=== PATIENT | female | born 1985 | race Caucasian/White ===

== ENCOUNTER 2019-05-03 01:24 | Emergency (ER) | payer BC, OTHER ==
[~2019-05-03] VITALS: Ht 175.3 cm; Wt 65.8 kg
[2019-05-03 01:47] VITALS: BP 132/83
--- NOTE | 2019-05-03 01:47 | NUR ---
ED Nurse Note: Pt arrived ED from home. c/o right shoulder pain 8/10 since last night without any fall or injury. Pt is A/O X 4, Vital signs stable at this time, waiting for orders.
--- NOTE | 2019-05-03 02:04 | NUR ---
ED Nurse Note: Pain meds given as ordered.
[2019-05-03] MEDS ORDERED: IBUPROFEN600 MG ORAL (02:52)
[2019-05-03 02:57] VITALS: BP 132/83
--- NOTE | 2019-05-03 02:57 | NUR ---
ER DISCHARGE NOTE: Patient is cleared to be discharged per Dr. Tucker. X-ray done. Meds given as ordered. arm sline provided. Pt is aox4 on room air with stable vital signs. Pt was given dc and prescription instructions and was able to verbalize understanding. Pt's ID band removed. Pt is able to ambulate well with steady gait and took all belongings.
--- NOTE | 2019-05-03 06:19 | Emergency Room Report ---
History of Present Illness General Chief Complaint: Pain Source: Patient Present Illness HPI 34-year-old female presents ED for evaluation. Walked in complaining of right shoulder pain. Started last night. States that she felt some pain after a workout but got progressively worse. States now she is crying in pain and could not sleep because of the pain. Pain is a 10 out of 10, throbbing, nonradiating. Worse with abduction. No other aggravating relieving factors. Denies any other associated symptoms Allergies: Coded Allergies: AMOXICILLIN (Verified Allergy, Unknown, 05/03/19) Patient History Past Medical History: other - rheumatoid arthritis Past Surgical History: none Pertinent Family History: none Social History: Denies: smoking, alcohol use, drug use Last Menstrual Period: Apr 17 2019 Now: No Immunizations: UTD Reviewed Nursing Documentation: PMH: Agreed; PSxH: Agreed Nursing Documentation-PMH Hx Neurological Problems: Yes - Rheumatoid Arthritis Review of Systems All Other Systems: negative except mentioned in HPI Physical Exam Vital Signs Date Time Temp Pulse Resp B/P (MAP) Pulse Ox O2 Delivery O2 Flow Rate FiO2 05/03/19 01:41 98.1 70 16 132/83 (99) 95 Room Air Sp02 EP Interpretation: reviewed, normal General Appearance: no apparent distress, alert, GCS 15, non-toxic Head: normocephalic Eyes: bilateral eye normal inspection, bilateral eye PERRL ENT: normal ENT inspection Neck: normal inspection Respiratory: normal inspection Cardiovascular #1: normal inspection Gastrointestinal: normal inspection Rectal: deferred Genitourinary: no CVA tenderness Musculoskeletal: tender - R shoulder Neurologic: alert, oriented x3, responsive, motor strength/tone normal, sensory intact, speech normal Psychiatric: normal inspection Skin: normal inspection Lymphatic: normal inspection Procedures Splinting Splinting : Consent: Verbal Splint: shoulder sling Pre-Proc Neuro Vasc Exam: normal Post-Proc Neuro Vasc Exam: normal Patient Tolerated: Well Complications: None Medical Decision Making Diagnostic Impression: Primary Impression: Shoulder pain Qualified Codes: M25.511 - Pain in right shoulder ER Course Hospital Course 34-year-old F presents to ED complaining of R shoulder pain Differential diagnoses include: Fracture, dislocation, sprain, contusion Clinical course Patient placed on stretcher. After initial history and physical, I ordered pain medications and Xrays of R shoulder Xrays prelim read shows no acute fracture/dislocation. placed in sling Discussed findings with patient. Consideration for bicep tendinitis injury. Recommend ice, NSAIDs, modified activity. Will provide orthopedic referrals Diagnosis - shoulder pain Stable and discharged to home with prescription for Motrin. apply ice, keep elevated. weight bear as tolerated. Followup with PMD/ortho. Return to ED if symptoms recur or worsen Other X-Ray Diagnostic Results Other X-Ray Diagnostic Results : X-Ray ordered: R shoulder # of Views/Limited Vs Complete: 3 View Indication: Pain EP Interpretation: Yes Interpretation: no dislocation, no soft tissue swelling, no fractures Impression: No acute disease Electronically Signed by: Electronically signed by Shay Tucker MD Last Vital Signs Date Time Temp Pulse Resp B/P (MAP) Pulse Ox O2 Delivery O2 Flow Rate FiO2 05/03/19 02:57 98.1 83 16 132/83 95 Room Air Status: improved Disposition: HOME, SELF-CARE Condition: Stable Scripts Ibuprofen* (MOTRIN*) 600 Mg Tablet 600 MG ORAL Q8H PRN for For Pain for 7 Days, #30 TAB 0 Refills Prov: Shay Tucker MD 05/03/19 Referrals: Sukh Tovar MD NON PHYSICIAN (PCP) [facility] Open 24 hour /7 days a week by Appointment Only [address] [place] [id number] Patient Instructions: Biceps Tendon Tendinitis (Proximal) and Tenosynovitis With Rehab-SportsMed, Rotator Cuff Tendinitis Shay Tucker MD May 03, 2019 06:19
--- NOTE | 2019-05-03 17:49 | Diagnostic Imaging Report ---
Indication: Right shoulder pain for one day Technique: 3 views of the right shoulder Comparison: none Findings: No acute fractures. No dislocations. Joint spaces are preserved Impression: Negative
== END 2019-05-03 02:57 | disposition home or self-care (01) ==
LOC: EMR 01:56
DX: M25.511 Pain in right shoulder (principal); M06.9 Rheumatoid arthritis, unspecified; Z88.0 Allergy status to penicillin
CPT/HCPCS: 29105; 99283